=== PATIENT | female | born 1960 | race Caucasian/White ===

== ENCOUNTER → 2016-07-30 | Outpatient (CLI) | payer BC ==
[~2016-07-30] MED LIST: AMBIEN 5MG TABLE5 MG PO; EFFEXOR37.5 MG; EFFEXOR75 MG PO; MECLIZINE25 MG PO; NORCO 325 MG-51 TA1 PO; TOPAMAX50 MG PO; ZOFRAN ODT8 MG PO; [UNRECOGNIZED DRUG - OTHER] TP
== END ==
LOC: MAMMO 13:42
DX: Z12.31 Encounter for screening mammogram for malignant neoplasm of breast (principal)
CPT/HCPCS: G0202

== ENCOUNTER → 2016-10-20 | Outpatient (CLI) | payer BC ==
[2014-08-10 10:55] VITALS: BP 114/81
== END ==
LOC: RAD 14:36
DX: R10.32 Left lower quadrant pain (principal)

== ENCOUNTER → 2017-08-05 | Outpatient (CLI) | payer BC ==
[2014-08-10 10:55] VITALS: BP 114/81
== END ==
LOC: MAMMO 15:23 → RAD 16:00
DX: Z12.31 Encounter for screening mammogram for malignant neoplasm of breast (principal); R92.8 Other abnormal and inconclusive findings on diagnostic imaging of breast

== ENCOUNTER → 2017-08-10 | Outpatient (CLI) | payer BC ==
[2014-08-10 10:55] VITALS: BP 114/81
== END ==
LOC: MAMMO 07:35
DX: N60.12 Diffuse cystic mastopathy of left breast (principal)

== ENCOUNTER → 2017-08-28 | Outpatient (CLI) | payer BC ==
[2014-08-10 10:55] VITALS: BP 114/81
== END ==
LOC: LAB 14:48
DX: R05 Cough (principal)

== ENCOUNTER → 2017-11-23 | Outpatient (CLI) | payer BC ==
[2014-08-10 10:55] VITALS: BP 114/81
== END ==
LOC: RAD 14:47
DX: S93.401A Sprain of unspecified ligament of right ankle, initial encounter (principal)

== ENCOUNTER → 2018-02-08 | Outpatient (CLI) | payer OTHER, BC ==
[2014-08-10 10:55] VITALS: BP 114/81
== END ==
LOC: RAD 16:37
DX: S20.219A Contusion of unspecified front wall of thorax, initial encounter (principal); S99.922A Unspecified injury of left foot, initial encounter; V89.9XXA Person injured in unspecified vehicle accident, initial encounter

== ENCOUNTER → 2018-03-08 | Outpatient (CLI) | payer OTHER, BC ==
[2014-08-10 10:55] VITALS: BP 114/81
== END ==
LOC: RAD 17:33
DX: M19.072 Primary osteoarthritis, left ankle and foot (principal); R60.0 Localized edema; V49.9XXA Car occupant (driver) (passenger) injured in unspecified traffic accident, initial encounter

== ENCOUNTER 2018-04-07 13:30 | Outpatient (RCR) | payer OTHER, BC ==
[2014-08-10 10:55] VITALS: BP 114/81
== END 2018-04-07 14:00 | disposition home or self-care (01) ==
LOC: PT 13:30
DX: M54.6 Pain in thoracic spine (principal); S20.212D Contusion of left front wall of thorax, subsequent encounter; M62.830 Muscle spasm of back; V49.50XD Passenger injured in collision with unspecified motor vehicles in traffic accident, subsequent encounter
CPT/HCPCS: G0283-GP

== ENCOUNTER 2018-07-19 09:00 | Outpatient (RCR) | payer OTHER, BC ==
[2014-08-10 10:55] VITALS: BP 114/81
== END 2018-08-17 | disposition home or self-care (01) ==
LOC: PT
DX: S30.0XXD Contusion of lower back and pelvis, subsequent encounter (principal); M53.3 Sacrococcygeal disorders, not elsewhere classified; M76.32 Iliotibial band syndrome, left leg; M70.62 Trochanteric bursitis, left hip; M70.61 Trochanteric bursitis, right hip

== ENCOUNTER → 2018-08-11 | Outpatient (CLI) | payer BC ==
[2014-08-10 10:55] VITALS: BP 114/81
== END ==
LOC: MAMMO 11:22
DX: Z12.31 Encounter for screening mammogram for malignant neoplasm of breast (principal); R92.0 Mammographic microcalcification found on diagnostic imaging of breast

== ENCOUNTER → 2018-08-12 | Outpatient (CLI) | payer BC ==
[2014-08-10 10:55] VITALS: BP 114/81
== END ==
LOC: MAMMO 07:37
DX: R92.0 Mammographic microcalcification found on diagnostic imaging of breast (principal)

== ENCOUNTER → 2018-12-09 | Outpatient (CLI) | payer BC ==
[2014-08-10 10:55] VITALS: BP 114/81
== END ==
LOC: RAD 11:56
DX: M17.12 Unilateral primary osteoarthritis, left knee (principal); Z98.890 Other specified postprocedural states

== ENCOUNTER → 2018-12-16 | Outpatient (CLI) | payer BC ==
[2014-08-10 10:55] VITALS: BP 114/81
[2018-12-16 11:52] LABS: EOS # 0.1 (0.04-0.40); EOS % 1.7 % (1.0-5.0); HEMATOCRIT 42.4 % (37.0-47.0); HEMOGLOBIN 13.8 g/dL (12.5-16.0); LYMPH# 1.6 (1.50-4.00); MEAN CELL VOLUME 94 fl (78-100); MEAN CORPUSCULAR HEMOGLOBIN 31 pg (27-31); MEAN CORPUSCULAR HGB CONC 33 g/dL (33-37); MEAN PLATELET VOLUME 10.9 fl (7.4-10.4); MONO # 0.5 (0.20-0.80); NEU # 4.8 (1.40-6.50); PLATELET COUNT 289 K/mm3 (130-400); RED BLOOD COUNT 4.53 M/mm3 (4.10-5.30); RED CELL DISTRIBUTION WIDTH 13.9 % (11.5-14.5); WHITE BLOOD COUNT 7.1 K/mm3 (4.8-10.8)
[2018-12-16 12:37] LABS: CALCIUM 9.5 mg/dL (8.3-10.5); POTASSIUM 3.9 mmol/L (3.5-5.1); TOTAL BILIRUBIN 0.4 mg/dL (0.2-1.2); TOTAL PROTEIN 6.7 g/dL (6.4-8.3)
== END ==
LOC: LAB 11:38
PROVIDERS: Internal Medicine
DX: Z00.00 Encounter for general adult medical examination without abnormal findings (principal); Z12.11 Encounter for screening for malignant neoplasm of colon

== ENCOUNTER 2019-05-16 21:26 | Emergency (ER) | payer BC ==
[~2019-05-16] VITALS: Ht 154.9 cm; Wt 68.2 kg
[2019-05-16] MEDS ORDERED: OMEPRAZOLE40 MG PO (21:40)
[2019-05-16] MEDS ORDERED: VENLAFAXINE HY150 MG PO (21:40)
[2019-05-16] MEDS ORDERED: SINGULAIR 110 MG/TAB PO (21:40)
[2019-05-16] MEDS ORDERED: CYCLOBENZAPRINE10 M1 PO (21:41)
[2019-05-16] MEDS ORDERED: CYANOCOBAL1000 MCG/1 IM (21:41)
[2019-05-16] MEDS ORDERED: CELECOXIB200 M1 PO (21:42)
[2019-05-16 22:00] LABS: BASO # 0.1 (0.02-0.10); EOS # 0.1 (0.04-0.40); EOS % 0.9 % (1.0-5.0); HEMATOCRIT 41.2 % (37.0-47.0); HEMOGLOBIN 13.7 g/dL (12.5-16.0); LYMPH# 1.9 (1.50-4.00); MEAN CELL VOLUME 93 fl (78-100); MEAN CORPUSCULAR HEMOGLOBIN 31 pg (27-31); MEAN CORPUSCULAR HGB CONC 33 g/dL (33-37); MEAN PLATELET VOLUME 10.3 fl (7.4-10.4); MONO # 0.3 (0.20-0.80); NEU # 5.5 (1.40-6.50); PLATELET COUNT 450 K/mm3 (130-400); RED BLOOD COUNT 4.41 M/mm3 (4.10-5.30); RED CELL DISTRIBUTION WIDTH 13.5 % (11.5-14.5); WHITE BLOOD COUNT 7.9 K/mm3 (4.8-10.8)
[2019-05-16 22:13] LABS: ALBUMIN 4.5 g/dL (3.5-5.0)
[2019-05-16 23:31] LABS: CALCIUM 9.7 mg/dL (8.3-10.5); CARBON DIOXIDE 23 mmol/L (22-29); GLUCOSE 90 mg/dL (65-105); POTASSIUM 3.4 mmol/L (3.5-5.1); SODIUM 142 mmol/L (136-145); TOTAL BILIRUBIN 0.4 mg/dL (0.2-1.2); TOTAL PROTEIN 7.6 g/dL (6.4-8.3)
[2019-05-16 23:36] LABS: ACETAMINOPHEN < 1 ug/mL; ALCOHOL IN-HOUSE 81 mg/dL (<10); ALT/SGPT 18 U/L (0-55); AST-SGOT 19 U/L (5-34)
[2019-05-16 23:42] LABS: PH-URINE 5.5 (5.0 - 8.0); URINE APPEARANCE CLEAR; URINE COLOR YELLOW; URINE GLUCOSE NEGATIVE (NEGATIVE); URINE KETONE NEGATIVE (NEGATIVE); URINE PROTEIN(semi-quant) TRACE mg/dL (NEGATIVE)
[2019-05-16 23:43] LABS: URINE BILIRUBIN NEGATIVE (NEGATIVE); URINE BLOOD TRACE (NEGATIVE); URINE LEUKOCYTE ESTERASE 1+ (NEGATIVE); URINE NITRATE NEGATIVE (NEGATIVE); URINE UROBILINOGEN NORMAL (NORMAL)
[2019-05-17 02:00] VITALS: BP 118/79
== END 2019-05-17 04:00 | disposition home or self-care (01) ==
LOC: ED 21:26
PROVIDERS: Nurse Practitioner
DX: F39 Unspecified mood [affective] disorder (principal); F32.9 Major depressive disorder, single episode, unspecified; F41.9 Anxiety disorder, unspecified; F17.210 Nicotine dependence, cigarettes, uncomplicated; Z85.3 Personal history of malignant neoplasm of breast; Z90.49 Acquired absence of other specified parts of digestive tract

== ENCOUNTER → 2019-08-19 | Outpatient (CLI) | payer BC ==
[~2019-08-19] MED LIST changes: +CELECOXIB200 M1 PO; +CYANOCOBAL1000 MCG/1 IM; +CYCLOBENZAPRINE10 M1 PO; +OMEPRAZOLE40 MG PO; +SINGULAIR 110 MG/TAB PO; +VENLAFAXINE HY150 MG PO
[2019-08-19 08:34] LABS: ALBUMIN 3.9 g/dL (3.5-5.0)
[2019-08-19 08:36] LABS: CALCIUM 8.4 mg/dL (8.3-10.5)
[2019-08-19 08:37] LABS: TOTAL PROTEIN 6.6 g/dL (6.4-8.3)
[2019-08-19 08:39] LABS: TOTAL BILIRUBIN 0.3 mg/dL (0.2-1.2)
== END ==
LOC: LAB 08:10
PROVIDERS: Internal Medicine
DX: F32.9 Major depressive disorder, single episode, unspecified (principal)

== ENCOUNTER → 2020-01-28 | Outpatient (CLI) | payer SELFPAY | LOC: RAD 13:56 | DX: M79.89 Other specified soft tissue disorders (principal) ==

== ENCOUNTER → 2020-06-30 | Outpatient (CLI) | payer SELFPAY | LOC: LAB 08:48 | DX: R05 Cough (principal); M79.10 Myalgia, unspecified site; R09.81 Nasal congestion; R09.89 Other specified symptoms and signs involving the circulatory and respiratory systems; R11.2 Nausea with vomiting, unspecified; R19.7 Diarrhea, unspecified; R53.83 Other fatigue; Z20.828 Contact with and (suspected) exposure to other viral communicable diseases ==

== ENCOUNTER → 2020-10-04 | Outpatient (CLI) | payer MEDICARE ==
[~2020-10-04] MED LIST changes: +EPIPEN 2-PAK1 MG/ML IM; +PREDNISONE20 MG PO
== END ==
LOC: MAMMO 08:27
DX: Z12.31 Encounter for screening mammogram for malignant neoplasm of breast (principal)

== ENCOUNTER 2020-12-19 13:24 | Emergency (ER) | payer MEDICARE ==
[~2020-12-19 13:24] MED LIST changes: -EPIPEN 2-PAK1 MG/ML IM; -PREDNISONE20 MG PO
[2020-12-19] MEDS ORDERED: PREDNISONE20 MG PO (15:09)
[2020-12-19] MEDS ORDERED: EPIPEN 2-PAK1 MG/ML IM (15:09)
[2020-12-19 16:20] VITALS: BP 120/96
== END 2020-12-19 16:20 | disposition home or self-care (01) ==
LOC: ED 13:24
DX: L23.7 Allergic contact dermatitis due to plants, except food (principal); T78.3XXA Angioneurotic edema, initial encounter; F17.210 Nicotine dependence, cigarettes, uncomplicated
CPT/HCPCS: J0171; J1200; J2930

== ENCOUNTER → 2021-09-10 | Outpatient (CLI) | payer MEDICARE ==
[~2021-09-10] MED LIST changes: +EPIPEN 2-PAK1 MG/ML IM; +PREDNISONE20 MG PO
[2021-09-10 17:02] LABS: BASO # 0.06 K/mm3 (0.02-0.10); EOS # 0.15 K/mm3 (0.04-0.40); EOS % 1.9 % (1.0-5.0); HEMATOCRIT 40.3 % (37.0-47.0); HEMOGLOBIN 13.4 g/dL (12.5-16.0); LYMPH# 2.73 K/mm3 (1.50-4.00); MEAN CELL VOLUME 95 fl (78-100); MEAN CORPUSCULAR HEMOGLOBIN 32 pg (27-31); MEAN CORPUSCULAR HGB CONC 33 g/dL (33-37); MEAN PLATELET VOLUME 10.6 fl (7.4-10.4); MONO # 0.53 K/mm3 (0.20-0.80); NEU # 4.32 K/mm3 (1.40-6.50); PLATELET COUNT 270 K/mm3 (130-400); RED BLOOD COUNT 4.23 M/mm3 (4.10-5.30); RED CELL DISTRIBUTION WIDTH 12.9 % (11.5-14.5); WHITE BLOOD COUNT 7.8 K/mm3 (4.8-10.8)
[2021-09-10 17:31] LABS: ALBUMIN 4.2 g/dL (3.5-5.0); POTASSIUM 3.6 mmol/L (3.5-5.1)
[2021-09-10 17:32] LABS: CALCIUM 9.1 mg/dL (8.3-10.5)
[2021-09-10 17:33] LABS: TOTAL PROTEIN 6.7 g/dL (6.4-8.3)
== END ==
LOC: RAD 16:43
PROVIDERS: Internal Medicine
DX: Z12.39 Encounter for other screening for malignant neoplasm of breast (principal); Z12.11 Encounter for screening for malignant neoplasm of colon; F32.0 Major depressive disorder, single episode, mild; F41.1 Generalized anxiety disorder; S62.609A Fracture of unspecified phalanx of unspecified finger, initial encounter for closed fracture; E53.8 Deficiency of other specified B group vitamins; K90.9 Intestinal malabsorption, unspecified; E78.2 Mixed hyperlipidemia

== ENCOUNTER → 2021-09-24 | Outpatient (CLI) | payer MEDICARE | LOC: MAMMO 14:22 | DX: Z12.31 Encounter for screening mammogram for malignant neoplasm of breast (principal) ==

== ENCOUNTER → 2021-12-10 | Outpatient (CLI) | payer MEDICARE ==
[~2021-12-10] MED LIST changes: +AMBIEN10 MG PO; +CLONAZEPAM0.5 M1 PO
== END ==
LOC: LAB 11:46
DX: F41.8 Other specified anxiety disorders (principal); F41.1 Generalized anxiety disorder; K90.9 Intestinal malabsorption, unspecified

== ENCOUNTER 2022-03-09 14:11 | Emergency (ER) | payer MEDICARE ==
[~2022-03-09] VITALS: Ht 157.5 cm; Wt 51.8 kg
[2022-03-09] MEDS ORDERED: DESVENLAFAXINE50 M3 PO (14:44)
[2022-03-09] MEDS ORDERED: TRAMADOL 50 MG TAB PO (14:44)
[2022-03-09] MEDS ORDERED: [UNRECOGNIZED DRUG - CODE] PO (14:45)
[2022-03-09 16:00] VITALS: BP 94/69
[2022-03-09 16:52] LABS: BASO # 0.03 K/mm3 (0.02-0.10); EOS # 0.15 K/mm3 (0.04-0.40); HEMATOCRIT 40.8 % (37.0-47.0); HEMOGLOBIN 13.1 g/dL (12.5-16.0); LYMPH# 1.85 K/mm3 (1.50-4.00); MEAN CELL VOLUME 94 fl (78-100); MEAN CORPUSCULAR HEMOGLOBIN 30 pg (27-31); MEAN CORPUSCULAR HGB CONC 32 g/dL (33-37); MEAN PLATELET VOLUME 10.7 fl (7.4-10.4); MONO # 0.34 K/mm3 (0.20-0.80); NEU # 2.64 K/mm3 (1.40-6.50); PLATELET COUNT 209 K/mm3 (130-400); RED BLOOD COUNT 4.34 M/mm3 (4.10-5.30); RED CELL DISTRIBUTION WIDTH 12.8 % (11.5-14.5)
== END 2022-03-09 17:15 | disposition left against medical advice (07) ==
LOC: ED 14:11
PROVIDERS: Family Medicine
DX: L50.9 Urticaria, unspecified (principal); F17.210 Nicotine dependence, cigarettes, uncomplicated
CPT/HCPCS: J7512

== ENCOUNTER → 2022-04-29 | Outpatient (CLI) | payer MEDICARE ==
[~2022-04-29] MED LIST changes: +DESVENLAFAXINE50 M3 PO; +TRAMADOL 50 MG TAB PO; +[UNRECOGNIZED DRUG - CODE] PO
[2022-04-29 15:38] LABS: BASO # 0.05 K/mm3 (0.02-0.10); EOS # 0.05 K/mm3 (0.04-0.40); EOS % 0.7 % (1.0-5.0); HEMATOCRIT 37.9 % (37.0-47.0); HEMOGLOBIN 12.4 g/dL (12.5-16.0); LYMPH# 2.52 K/mm3 (1.50-4.00); MEAN CELL VOLUME 92 fl (78-100); MEAN CORPUSCULAR HEMOGLOBIN 30 pg (27-31); MEAN CORPUSCULAR HGB CONC 33 g/dL (33-37); MEAN PLATELET VOLUME 10.2 fl (7.4-10.4); MONO # 0.44 K/mm3 (0.20-0.80); NEU # 4.57 K/mm3 (1.40-6.50); PLATELET COUNT 292 K/mm3 (130-400); RED CELL DISTRIBUTION WIDTH 13.3 % (11.5-14.5); WHITE BLOOD COUNT 7.6 K/mm3 (4.8-10.8)
[2022-04-29 15:50] LABS: ALBUMIN 4.2 g/dL (3.5-5.0); POTASSIUM 4.1 mmol/L (3.5-5.1)
[2022-04-29 15:51] LABS: CALCIUM 9.5 mg/dL (8.3-10.5)
[2022-04-29 15:52] LABS: TOTAL PROTEIN 6.9 g/dL (6.4-8.3)
[2022-04-29 15:54] LABS: TOTAL BILIRUBIN 0.7 mg/dL (0.2-1.2)
== END ==
LOC: LAB 15:19
PROVIDERS: Internal Medicine
DX: F32.0 Major depressive disorder, single episode, mild (principal); H60.91 Unspecified otitis externa, right ear; K90.9 Intestinal malabsorption, unspecified; E78.2 Mixed hyperlipidemia; E55.9 Vitamin D deficiency, unspecified

== ENCOUNTER → 2022-10-30 | Outpatient (CLI) | payer MEDICARE | LOC: MAMMO 10:23 | DX: Z12.31 Encounter for screening mammogram for malignant neoplasm of breast (principal) ==

== ENCOUNTER 2023-02-27 13:00 | Outpatient (RCR) | payer MEDICARE | END 2023-03-12 | disposition home or self-care (01) | LOC: PT | DX: M75.41 Impingement syndrome of right shoulder (principal) ==

== ENCOUNTER → 2023-04-14 | Outpatient (CLI) | payer MEDICARE | LOC: LAB 10:23 → RAD 10:23 | DX: Z12.11 Encounter for screening for malignant neoplasm of colon (principal); Z11.4 Encounter for screening for human immunodeficiency virus [HIV]; E53.8 Deficiency of other specified B group vitamins; K90.9 Intestinal malabsorption, unspecified; E78.2 Mixed hyperlipidemia; F32.0 Major depressive disorder, single episode, mild; E55.9 Vitamin D deficiency, unspecified; R20.2 Paresthesia of skin; K21.9 Gastro-esophageal reflux disease without esophagitis; G47.01 Insomnia due to medical condition | CPT/HCPCS: Q9967 ==

== ENCOUNTER → 2023-04-22 | Outpatient (CLI) | payer MEDICARE ==
[2023-04-22 11:41] LABS: ALBUMIN 3.6 g/dL (3.5-5.0); POTASSIUM 3.5 mmol/L (3.5-5.1)
[2023-04-22 11:42] LABS: CALCIUM 9.5 mg/dL (8.3-10.5)
[2023-04-22 11:43] LABS: TOTAL PROTEIN 6.2 g/dL (6.4-8.3)
[2023-04-22 11:45] LABS: TOTAL BILIRUBIN 0.4 mg/dL (0.2-1.2)
[2023-04-22 13:04] LABS: ERYTHROCYTE SEDIMENTATION RATE 22 mm/hr (0-30)
[2023-04-22 13:14] LABS: BASO # 0.03 K/mm3 (0.02-0.10); EOS # 0.22 K/mm3 (0.04-0.40); EOS % 3.7 % (1.0-5.0); HEMOGLOBIN 11.5 g/dL (12.5-16.0); LYMPH# 1.59 K/mm3 (1.50-4.00); MEAN CELL VOLUME 94 fl (78-100); MEAN CORPUSCULAR HEMOGLOBIN 31 pg (27-31); MEAN CORPUSCULAR HGB CONC 33 g/dL (33-37); MEAN PLATELET VOLUME 11.7 fl (7.4-10.4); MONO # 0.46 K/mm3 (0.20-0.80); NEU # 3.62 K/mm3 (1.40-6.50); PLATELET COUNT 346 K/mm3 (130-400); RED BLOOD COUNT 3.71 M/mm3 (4.10-5.30); RED CELL DISTRIBUTION WIDTH 13.3 % (11.5-14.5); WHITE BLOOD COUNT 5.9 K/mm3 (4.8-10.8)
== END ==
LOC: LAB 11:07
PROVIDERS: Internal Medicine
DX: F32.0 Major depressive disorder, single episode, mild (principal); R20.2 Paresthesia of skin; M75.41 Impingement syndrome of right shoulder; M70.60 Trochanteric bursitis, unspecified hip; J18.9 Pneumonia, unspecified organism; K90.9 Intestinal malabsorption, unspecified; E78.2 Mixed hyperlipidemia; E55.9 Vitamin D deficiency, unspecified; H60.91 Unspecified otitis externa, right ear; R06.00 Dyspnea, unspecified; D64.9 Anemia, unspecified

== ENCOUNTER → 2023-07-28 | Outpatient (CLI) | payer MEDICARE ==
[2023-07-28 16:20] LABS: BASO # 0.05 K/mm3 (0.02-0.10); EOS # 0.12 K/mm3 (0.04-0.40); EOS % 1.6 % (1.0-5.0); HEMATOCRIT 42.2 % (37.0-47.0); HEMOGLOBIN 13.8 g/dL (12.5-16.0); LYMPH# 2.84 K/mm3 (1.50-4.00); MEAN CELL VOLUME 92 fl (78-100); MEAN CORPUSCULAR HEMOGLOBIN 30 pg (27-31); MEAN CORPUSCULAR HGB CONC 33 g/dL (33-37); MONO # 0.45 K/mm3 (0.20-0.80); NEU # 3.89 K/mm3 (1.40-6.50); PLATELET COUNT 407 K/mm3 (130-400); RED BLOOD COUNT 4.61 M/mm3 (4.10-5.30); RED CELL DISTRIBUTION WIDTH 12.3 % (11.5-14.5); WHITE BLOOD COUNT 7.4 K/mm3 (4.8-10.8)
== END ==
LOC: LAB 16:02
PROVIDERS: Internal Medicine
DX: D64.9 Anemia, unspecified (principal)

== ENCOUNTER → 2023-11-09 | Outpatient (CLI) | payer MEDICARE | LOC: MAMMO 13:41 | DX: Z12.31 Encounter for screening mammogram for malignant neoplasm of breast (principal); Z85.3 Personal history of malignant neoplasm of breast; Z98.890 Other specified postprocedural states ==